=== PATIENT | female | born 1960 | race Caucasian/White ===

== ENCOUNTER 2018-03-17 14:57 | Emergency (ER) | payer OTHER ==
[2018-03-17] MEDS ORDERED: ACETAMINOPHEN 325 MG TAB ONE (15:34)
[2018-03-17] MEDS ORDERED: KETOROLAC TROMETHAMINE 30MG/ML ONE (16:12)
== END 2018-03-17 16:37 | disposition home or self-care (01) ==
LOC: EDH 14:57
DX: S13.9XXA Sprain of joints and ligaments of unspecified parts of neck, initial encounter (principal); S00.212A Abrasion of left eyelid and periocular area, initial encounter; Z90.710 Acquired absence of both cervix and uterus; Y04.2XXA Assault by strike against or bumped into by another person, initial encounter; Y93.89 Activity, other specified; Y92.89 Other specified places as the place of occurrence of the external cause; Y99.8 Other external cause status
CPT/HCPCS: 70450; 72125; 96374; 99284; J1885